=== PATIENT | male | born 1965 | race Caucasian/White ===

== ENCOUNTER 2018-02-14 14:33 | Emergency (ER) | payer SELFPAY ==
[2018-02-14] MEDS: HYDROCODONE/APAP (5/325) TAB PO (15:19)
[2018-02-14] MEDS: DIPHTH/TET/ACEL PERTUSS (ADULT) 0.5 ML VIAL IM* (15:19)
== END 2018-02-14 15:59 | disposition home or self-care (01) ==
LOC: FTE 14:33
DX: S31.119A Laceration without foreign body of abdominal wall, unspecified quadrant without penetration into peritoneal cavity, initial encounter (principal); W25.XXXA Contact with sharp glass, initial encounter; Y92.9 Unspecified place or not applicable; Z23 Encounter for immunization
CPT/HCPCS: 12004; 74018; 90471; 90715; 99283-25

== ENCOUNTER 2018-02-27 11:54 | Emergency (ER) | payer SELFPAY | END 2018-02-27 15:05 | disposition home or self-care (01) | LOC: FTE 11:54 | DX: Z48.02 Encounter for removal of sutures (principal) | CPT/HCPCS: 99281 ==